=== PATIENT | female | born 1940 | race Caucasian/White ===

== ENCOUNTER 2018-10-25 15:43 | Observation (INO) ==
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
[2018-10-25 16:13] LABS: BILIRUBIN,URINE NEGATIVE (NEGATIVE); BLOOD/HEMOGLOBIN,URINE 1+ (NEGATIVE); GLUCOSE, URINE NEGATIVE (NEGATIVE); KETONES,URINE NEGATIVE (NEGATIVE); LEUKOCYTE ESTERASE ,URINE NEGATIVE (NEGATIVE); NITRITES,URINE NEGATIVE (NEGATIVE); PROTEIN,URINE 1+ (NEGATIVE); UROBILINOGEN,URINE NORMAL (NORMAL)
[2018-10-25 16:24] LABS: APPEARANCE,URINE CLEAR (CLEAR); COLOR,URINE YELLOW (YELLOW)
[2018-10-25 16:25] LABS: BACTERIA,URINE NEGATIVE /HPF (NEGATIVE); SQUAMOUS EPITHELIAL CELL,UR FEW /HPF (NEGATIVE)
--- NOTE | 2018-10-25 16:25 | CT ---
STUDY: CT HEAD WITHOUT CONTRAST HISTORY: Increasingly more confuse. Hallucinating. COMPARISON: None. TECHNIQUE: Multiple axial images of the head were obtained from the skull base to the vertex without administration of IV contrast. Automated exposure control (AEC) was utilized to adjust the MA and/or kV. Findings: The sulci, cisterns and ventricles are prominent consistent with diffuse volume loss. There are confluent and scattered foci of low attenuation in the periventricular and subcortical white matter of both hemispheres. This is a nonspecific finding which likely represents microangiopathic change in a patient of this age. There is an old infarct with encephalomalacia in the right cerebellar hemisphere. There is no evidence of acute territorial infarction, hemorrhage, mass, mass effect or midline shift. There are no abnormal extra-axial fluid collections. There is no evidence of acute osseous abnormality or significant soft tissue swelling. IMPRESSION: 1. No evidence of acute intracranial abnormality. 2. 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 3. Nonspecific white matter change and volume loss as described. 4. If there is strong clinical concern for acute infarction, then an MRI examination of the brain could be performed for further evaluation. However, if there are no deficits on neurologic exam, there are no abnormalities identified on this study which require immediate imaging follow-up on an emergent basis. Follow-up MRI could be considered on an outpatient basis as clinically warranted. Reported By:
[2018-10-25 16:31] LABS: BASOPHILS # (AUTO) 0.1 X10^3/uL (0.0-0.1); BASOPHILS % (AUTO) 0.6 % (0.2-1.0); EOSINOPHILS # (AUTO) 0.4 x10^3/uL (0.0-0.2); EOSINOPHILS % (AUTO) 4.2 % (0.9-2.9); HEMATOCRIT 29.3 % (36.0-47.0); HEMOGLOBIN 9.9 g/dL (12.0-16.0); LYMPHOCYTES # (AUTO) 1.6 X10^3/uL (1.3-2.9); LYMPHOCYTES % (AUTO) 16.2 % (21.0-51.0); MEAN CORPUSCULAR HEMOGLOBIN 32.3 pg (27.0-34.0); MEAN CORPUSCULAR HGB CONC 33.6 g/dL (33.0-35.0); MEAN CORPUSCULAR VOLUME 96.1 fL (80.0-100.0); MEAN PLATELET VOLUME 8.1 fL (7.4-11.0); MONOCYTES # (AUTO) 0.9 x10^3/uL (0.3-0.8); MONOCYTES % (AUTO) 8.7 % (0.0-13.0); NEUTROPHILS # (AUTO) 7.1 x10^3/uL (2.2-4.8); NEUTROPHILS % (AUTO) 70.3 % (42.0-75.0); PLATELET COUNT 239 X10^3/uL (150.0-450.0); RED BLOOD COUNT 3.05 X10^6/uL (3.5-5.4); WHITE BLOOD COUNT 10.1 X10^3/uL (3.6-10.0)
[2018-10-25] MEDS ORDERED: NS 1000 ML 1,000 ML ONE (16:53)
[2018-10-25] MEDS ORDERED: NS 1000 ML 1,000 ML IV ONE (16:53)
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
[2018-10-25 17:08] LABS: ALBUMIN 2.8 g/dL (3.4-5.0); CALCIUM 9.2 mg/dL (8.5-10.1); CARBON DIOXIDE 29.2 mmol/L (21-32); COR CA(FOR HYPOALB) 10.2 mg/dL (8.5-10.1); CREATININE 1.38 mg/dL (0.55-1.02); TOTAL PROTEIN 6.4 g/dL (6.4-8.2)
[2018-10-25] MEDS: NS 1000 ML 1,000 ML IV SCH (18:21)
[2018-10-25 18:47] LABS: CKMB % 2.3 % (<4); CREATINE KINASE 44 Units/L (26-192); CREATINE KINASE MB < 1.0 ng/mL (0-4.0); TROPONIN I < 0.02 ng/mL (0-1.5)
--- NOTE | 2018-10-25 19:09 | RAD ---
HISTORY: Confusion Study: Single-view chest Comparison: Unavailable Findings: The trachea is midline. The cardiac silhouette is mildly enlarged there are changes from previous CABG procedure. The lungs demonstrate chronic appearing interstitial changes without focal infiltrate or effusion. The bony thorax is unremarkable. IMPRESSION: 1. No acute cardiopulmonary disease. Reported By:
[2018-10-25 20:10] VITALS: BMI 18.0
[2018-10-25] MEDS ORDERED: NEURONTIN CAP 400 MG PO SCH (21:00)
[2018-10-25] MEDS ORDERED: ARICEPT TAB 10 MG PO SCH (21:00)
[2018-10-25] MEDS ORDERED: LIPITOR TAB 40 MG PO SCH (21:00)
[2018-10-25] MEDS ORDERED: SINGULAIR TAB 10 MG PO SCH (21:00)
[2018-10-25] MEDS: NAMENDA TAB 10 MG PO SCH (21:07)
[2018-10-25] MEDS: LOPRESSOR TAB 25 MG PO SCH (21:07)
[2018-10-25] MEDS: BUSPAR PO SCH (21:07)
[2018-10-25] MEDS: WELCHOL PO SCH (21:07)
[2018-10-26 01:42] LABS: CKMB % 2.9 % (<4); CREATINE KINASE 34 Units/L (26-192); CREATINE KINASE MB < 1.0 ng/mL (0-4.0); TROPONIN I < 0.02 ng/mL (0-1.5)
[2018-10-26] MEDS: NS 1000 ML 1,000 ML IV SCH ×2 (05:27→09:24)
[2018-10-26 05:31] LABS: ALANINE AMINOTRANSFERASE 12 Units/L (12-78); ALBUMIN 2.4 g/dL (3.4-5.0); ALKALINE PHOSPHATASE 66 Units/L (46-116); ASPARTATE AMINO TRANSFERASE 15 Units/L (15-37); BLOOD UREA NITROGEN 23 mg/dL (7-18); CARBON DIOXIDE 28.8 mmol/L (21-32); CHLORIDE 109 mmol/L (98-107); CHOLESTEROL 91 mg/dL (0-200); COR CA(FOR HYPOALB) 10.3 mg/dL (8.5-10.1); CREATININE 1.09 mg/dL (0.55-1.02); HDL CHOLESTEROL 46 mg/dL (40-60); SODIUM 143 mmol/L (136-145); TOTAL PROTEIN 5.8 g/dL (6.4-8.2); TRIGLYCERIDES 62 mg/dL (0-150); eGFR NON BLACK RACES 52 (>60)
[2018-10-26 06:33] LABS: BASOPHILS % (AUTO) 0.5 % (0.2-1.0); EOSINOPHILS # (AUTO) 0.4 x10^3/uL (0.0-0.2); EOSINOPHILS % (AUTO) 4.3 % (0.9-2.9); HEMATOCRIT 26.9 % (36.0-47.0); HEMOGLOBIN 9.2 g/dL (12.0-16.0); LYMPHOCYTES % (AUTO) 19.8 % (21.0-51.0); MEAN CORPUSCULAR HEMOGLOBIN 32.6 pg (27.0-34.0); MEAN CORPUSCULAR HGB CONC 34.2 g/dL (33.0-35.0); MEAN CORPUSCULAR VOLUME 95.5 fL (80.0-100.0); MONOCYTES # (AUTO) 0.8 x10^3/uL (0.3-0.8); MONOCYTES % (AUTO) 7.6 % (0.0-13.0); NEUTROPHILS # (AUTO) 6.7 x10^3/uL (2.2-4.8); NEUTROPHILS % (AUTO) 67.8 % (42.0-75.0); PLATELET COUNT 206 X10^3/uL (150.0-450.0); RED BLOOD COUNT 2.82 X10^6/uL (3.5-5.4); RED CELL DISTRIBUTION WIDTH 12.8 % (11.6-16.5); WHITE BLOOD COUNT 9.9 X10^3/uL (3.6-10.0)
[2018-10-26 07:06] LABS: CKMB % 1.4 % (<4); CREATINE KINASE 72 Units/L (26-192); TROPONIN I < 0.02 ng/mL (0-1.5)
[2018-10-26] MEDS ORDERED: PHARMACY CONSULT - DOSE _____ XX SCH (08:00)
[2018-10-26] MEDS ORDERED: GLUCOPHAGE ONE (08:52)
[2018-10-26] MEDS ORDERED: COZAAR PO SCH (09:00)
[2018-10-26] MEDS ORDERED: PLAVIX PO SCH (09:00)
[2018-10-26] MEDS ORDERED: FERROUS GLUCONATE PO SCH (09:00)
[2018-10-26] MEDS ORDERED: CELEXA PO SCH (09:00)
[2018-10-26] MEDS ORDERED: PROTONIX TAB 40 MG PO SCH (09:00)
[2018-10-26] MEDS ORDERED: GLUCOPHAGE PO SCH (09:00)
[2018-10-26] MEDS: BUSPAR PO SCH (09:18)
[2018-10-26] MEDS: WELCHOL PO SCH (09:20)
[2018-10-26] MEDS: NAMENDA TAB 10 MG PO SCH (09:20)
[2018-10-26] MEDS: LOPRESSOR TAB 25 MG PO SCH (09:47)
[2018-10-26 12:04] VITALS: BP 125/61
[2018-10-26] MEDS ORDERED: SYNTHROID 25 mcg TAB PO SCH (16:30)
== END 2018-10-26 12:45 | disposition home or self-care (01) ==
LOC: ER 15:44 → ICU 15:44
PROVIDERS: ADMIT Obstetrics & Gynecology Obstetrics; ATTEND Obstetrics & Gynecology Obstetrics
DX: Z91.419 Personal history of unspecified adult abuse; E78.2 Mixed hyperlipidemia; K21.9 Gastro-esophageal reflux disease without esophagitis; R44.1 Visual hallucinations; F03.90 Unspecified dementia, unspecified severity, without behavioral disturbance, psychotic disturbance, mood disturbance, and anxiety; Z66 Do not resuscitate; Z79.899 Other long term (current) drug therapy; E86.0 Dehydration; R26.89 Other abnormalities of gait and mobility; R41.82 Altered mental status, unspecified; R07.89 Other chest pain; E11.65 Type 2 diabetes mellitus with hyperglycemia; R94.4 Abnormal results of kidney function studies; E03.8 Other specified hypothyroidism
CPT/HCPCS: 36415; 51702; 70450; 71010; 71045; 80053; 80061; 81001; 82550; 82553; 82607; 82728; 82746; 83540; 84466; 84484; 85025; 85730; 93005; 96365; 96367; 96374; 97165; 99284; A4222; G0378; J7030